=== PATIENT | female | born 1940 | race Caucasian/White ===

== ENCOUNTER 2016-12-14 16:29 | Inpatient (IN) | payer MEDICARE, OTHER ==
[2016-12-14] VITALS (8 sets, daily range): BP systolic 137–183; BP diastolic 68–92; PULSE 63–87; RESP 16–18; TEMP 97.7–98; O2SAT 93–98
[~2016-12-14] VITALS: Ht 154.9 cm; Wt 69.8 kg
[~2016-12-14 16:29] MED LIST: CIPR500T4 PO; ESTR.3 PO; PHEN-426 PO; PROM25SU8 PO
[2016-12-14] MEDS ORDERED: LEVO25TA4 PO (16:42)
--- NOTE | 2016-12-14 16:53 | PD ---
HPI Chief Complaint: Chest Pain Time Seen by Provider: 16:35 Travel History International Travel<30 days: No Contact w/Intl Traveler<30days: No Traveled to known affect area: No History of Present Illness HPI This 76-year-old female is complaining of shortness of breath for the past 3 weeks. She says that she gets symptoms like this every year and she believes is due to allergies. She has no history of asthma. She does not smoke. She has no history of heart disease. Only medication is thyroid replacement she has not had any edema. She does sleep on a low-dose. She is also having intermittent chest pain. She says she is having pressure in the front and back of her chest throughout the day today. She gets this chest pain quite frequently She says that she gets a stress test every year with Dr. Dowling. She says she has no energy and feels tired. She says that she gets symptoms like this every year and in fact this appears not as bad as the years. 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) Social History Alcohol Use: Yes (RARELY) Tobacco Use: No Substance Use: No Allergies-Medications (Allergen,Severity, Reaction): Coded Allergies: No Known Allergies (Unverified , 12/14/16) Reported Meds & Prescriptions Reported Meds & Active Scripts Active Reported Levothyroxine (Levothyroxine Sodium) 25 Mcg Tab 25 Mcg PO DAILY Review of Systems General / Constitutional: No: Fever, Chills Eyes: No: Diploplia, Blurred Vision HENT: No: Headaches, Vertigo, Lightheadedness Cardiovascular: Positive: Chest Pain or Discomfort, Dyspnea on exertion, No: Palpitations, Irregular Rhythm, Tachycardia, Syncope, Edema Respiratory: Positive: Shortness of Breath, No: Wheezing Gastrointestinal: No: Vomiting, Diarrhea Genitourinary: No: Urgency Musculoskeletal: No: Myalgias Skin: No Rash, No Itching Neurologic: Positive: Weakness, No: Focal Abnormalities Hematologic/Lymphatic: No: Easy Bruising Physical Exam Narrative GENERAL: Well-developed female SKIN: Focused skin assessment warm/dry. HEAD: Atraumatic. Normocephalic. EYES: Pupils equal and round. No scleral icterus. No injection or drainage. ENT: No nasal bleeding or discharge. Mucous membranes pink and moist. NECK: Trachea midline. No JVD. CARDIOVASCULAR: Regular rate and rhythm. No murmur appreciated. RESPIRATORY: No accessory muscle use. Clear to auscultation. Breath sounds equal bilaterally. GASTROINTESTINAL: Abdomen soft, non-tender, nondistended. Hepatic and splenic margins not palpable. MUSCULOSKELETAL: No obvious deformities. No clubbing. No cyanosis. No edema. NEUROLOGICAL: Awake and alert. No obvious cranial nerve deficits. Motor grossly within normal limits. Normal speech. PSYCHIATRIC: Appropriate mood and affect; insight and judgment normal. Data Data Last Documented VS Vital Signs Date Time Temp Pulse Resp B/P Pulse Ox O2 Delivery O2 Flow Rate FiO2 12/14/16 17:29 73 16 182/90 96 Room Air 12/14/16 16:31 98.0 Orders Electrocardiogram (12/14/16 16:45) Complete Blood Count With Diff (12/14/16 16:45) Comprehensive Metabolic Panel (12/14/16 16:45) Troponin I (12/14/16 16:45) B-Type Natriuretic Peptide (12/14/16 16:45) Magnesium (Mg) (12/14/16 16:45) Thyroid Stimulating Hormone (12/14/16 16:45) Chest, Pa & Lat (12/14/16 16:45) Aspirin (Aspirin) (12/14/16 17:00) Potassium Chloride (Kcl) (12/14/16 17:30) Nitroglycerin 2% Oint (Nitroglycerin 2% (12/14/16 17:45) Prothrombin Time / Inr (Pt) (12/14/16 17:44) Act Partial Throm Time (Ptt) (12/14/16 17:44) Nitroglycerin Sl (Nitrostat Sl) (12/14/16 17:45) Nitroglycerin-Dextrose Inj (Nitroglyceri (12/14/16 18:15) Ondansetron Inj (Zofran Inj) (12/14/16 18:15) Morphine Inj (Morphine Inj) (12/14/16 18:15) Morphine Inj (Morphine Inj) (12/14/16 18:15) Consent (12/14/16 18:15) Teaching Record: Cardiac Educa JOCELYN.Q12H (12/14/16 18:15) ^ Preps (12/14/16 18:15) ^ Preps (12/14/16 18:15) Bedside Glucose .Prior to procedure (12/14/16 18:15) ^ Insert Iv (12/14/16 18:15) ^ Medication Alert (12/14/16 18:15) Accordion Maker / Telemetry JOCELYN.Q8H (12/14/16 18:15) ^ Obtain As Needed (12/14/16 18:15) ^ Notify Of These Side Effects (12/14/16 18:15) Notify Dr: Blood Pressure (12/14/16 18:15) Notify Dr: Heart Rate (12/14/16 18:15) Teaching Record: Cardiac Educa JOCELYN.Q12H (12/14/16 18:15) ^ Smoking Cessation Counseling (12/14/16 18:15) Accordion Maker / Telemetry JOCELYN.Q8H (12/14/16 18:15) Diet Npo Except Meds (12/15/16 Breakfast) Echo 2d Comp W/Dopp(Routine) (12/14/16 ) Heparin Infusion JOCELYN.Q1H (12/14/16 18:16) Heparin Inj (Heparin Inj) (12/14/16 18:30) Heparin Inj (Heparin Inj) (12/15/16 00:30) Heparin Inj (Heparin Inj) (12/15/16 00:30) Heparin-D5w Inj (Heparin-D5w Inj) (12/14/16 18:30) Act Partial Throm Time (Ptt) (12/14/16 18:16) Cbc No Diff, Includes Plts (12/14/16 18:16) Cbc No Diff, Includes Plts (12/17/16 06:00) Act Partial Throm Time (Ptt) (12/15/16 01:16) Occult Blood (Hemoccult) Stool (12/14/16 18:16) Labs Laboratory Tests Test 12/14/16 12/14/16 17:03 17:54 White Blood Count 6.4 TH/MM3 Red Blood Count 4.49 MIL/MM3 Hemoglobin 13.6 GM/DL Hematocrit 41.1 % Mean Corpuscular Volume 91.6 FL Mean Corpuscular Hemoglobin 30.4 PG Mean Corpuscular Hemoglobin 33.2 % Concent Red Cell Distribution Width 13.3 % Platelet Count 239 TH/MM3 Mean Platelet Volume 8.7 FL Neutrophils (%) (Auto) 51.9 % Lymphocytes (%) (Auto) 37.6 % Monocytes (%) (Auto) 8.0 % Eosinophils (%) (Auto) 1.6 % Basophils (%) (Auto) 0.9 % Neutrophils # (Auto) 3.3 TH/MM3 Lymphocytes # (Auto) 2.4 TH/MM3 Monocytes # (Auto) 0.5 TH/MM3 Eosinophils # (Auto) 0.1 TH/MM3 Basophils # (Auto) 0.1 TH/MM3 CBC Comment DIFF FINAL Differential Comment Sodium Level 146 MEQ/L Potassium Level 3.4 MEQ/L Chloride Level 109 MEQ/L Carbon Dioxide Level 27.0 MEQ/L Anion Gap 10 MEQ/L Blood Urea Nitrogen 17 MG/DL Creatinine 0.84 MG/DL Estimat Glomerular Filtration 66 ML/MIN Rate Random Glucose 107 MG/DL Calcium Level 9.0 MG/DL Magnesium Level 2.4 MG/DL Total Bilirubin 0.3 MG/DL Aspartate Amino Transf 19 U/L (AST/SGOT) Alanine Aminotransferase 25 U/L (ALT/SGPT) Alkaline Phosphatase 58 U/L Troponin I 0.27 NG/ML B-Type Natriuretic Peptide 89 PG/ML Total Protein 7.0 GM/DL Albumin 3.8 GM/DL Thyroid Stimulating Hormone 2.370 uIU/ML 3rd Gen Prothrombin Time 10.0 SEC Prothromb Time International 0.9 RATIO Ratio Activated Partial 24.3 SEC Thromboplast Time MDM Medical Decision Making Medical Screen Exam Complete: Yes Emergency Medical Condition: Yes Medical Record Reviewed: Yes Differential Diagnosis Differential includes CHF, asthma, pneumonia, allergy Narrative Course EKG shows sinus rhythm at a rate of 83. There are horizontal ST depressions in leads V4 through V6. There is also some depression in lead 2 and 1. Her troponin is elevated at 0.27. Patient is complaining of pressure on the upper chest. She was given nitroglycerin and Nitropaste with minimal response. She' ll be given morphine and intravenous nitroglycerin initiated. Case discussed with Dr. bojorquez and we will also initiate a heparin drip and she'll be transferred to [facility] Diagnosis Primary Impression: Acute coronary syndrome Additional Impression: NSTEMI (non-ST elevated myocardial infarction) Admitting Information Admitting Physician Requests: Admit Ernesto Hackett MD Dec 14, 2016 16:53
[2016-12-14] MEDS ORDERED: ASPIRIN 325 MG TAB PO ONE (17:00)
[2016-12-14 17:16] LABS: AUTOMATED NEUTROPHIL # 3.3 TH/MM3 (1.8-7.7); BASOPHIL # 0.1 TH/MM3 (0-0.2); BASOPHIL % 0.9 % (0.0-2.0); CHLORIDE 109 MEQ/L (98-107); EOSINOPHIL # 0.1 TH/MM3 (0-0.4); EOSINOPHIL % 1.6 % (0.0-4.0); HEMATOCRIT 41.1 % (35.0-46.0); HEMO FLAGS DIFF FINAL; LYMPH % 37.6 % (9.0-44.0); LYMPHOCYTE # 2.4 TH/MM3 (1.0-4.8); MEAN CELL VOLUME 91.6 FL (80.0-100.0); MEAN CORPUSCULAR HEMOGLOBIN 30.4 PG (27.0-34.0); MEAN CORPUSCULAR HGB CONC 33.2 % (32.0-36.0); NEUT % 51.9 % (16.0-70.0); PLATELET COUNT 239 TH/MM3 (150-450); POTASSIUM 3.4 MEQ/L (3.5-5.1); RED BLOOD COUNT 4.49 MIL/MM3 (4.00-5.30); RED CELL DISTRIBUTION WIDTH 13.3 % (11.6-17.2); SODIUM (NA) 146 MEQ/L (136-145); WHITE BLOOD COUNT 6.4 TH/MM3 (4.0-11.0)
--- NOTE | 2016-12-14 17:19 | RADHPO ---
EXAM DATE/TIME: 12/14/2016 17:02 [place] COMPARISON: CHEST PA & LAT, November 24, 2014, 21:53. INDICATIONS : Chest pain and shortness of breath. MEDICAL HISTORY : None. SURGICAL HISTORY : None. ENCOUNTER: Initial ACUITY: 3 weeks PAIN SCORE: 6/10 LOCATION: Bilateral chest FINDINGS: PA and lateral views of the chest demonstrate the lungs to be symmetrically aerated without evidence of mass, infiltrate or effusion. The cardiomediastinal contours are unremarkable. Osseous structure s are intact. CONCLUSION: 1. No acute cardiopulmonary findings. Neno Yao MD on December 14, 2016 at 17:17 Board Certified Radiologist. This report was verified electronically.
[2016-12-14 17:20] LABS: ANION GAP 10 MEQ/L (5-15); BLOOD UREA NITROGEN 17 MG/DL (7-18); MAGNESIUM 2.4 MG/DL (1.5-2.5)
[2016-12-14 17:23] LABS: ALT (GPT) 25 U/L (10-53); AST (GOT) 19 U/L (15-37); GLOMERULAR FILTRATION RATE 66 ML/MIN (>89)
[2016-12-14 17:25] LABS: TOTAL BILIRUBIN ADULT 0.3 MG/DL (0.2-1.0)
[2016-12-14 17:26] LABS: ALKALINE PHOSPHATASE 58 U/L (45-117)
[2016-12-14] MEDS ORDERED: POTASSIUM CHLORIDE 20 MEQ CONTROLLED RELEASE TAB PO ONE (17:30)
[2016-12-14] MEDS ORDERED: NITROGLYCERIN 0.4 MG SL 25 TABS/BTL SL ONE (17:45)
[2016-12-14] MEDS ORDERED: NITROGLYCERIN 0.3 MG SL 100 TABS/BTL SL ONE (17:45)
[2016-12-14] MEDS ORDERED: NITROGLYCERIN 2% OINT 1 GM PACKET TOPICAL ONE (17:45)
[2016-12-14 18:12] LABS: APTT (PATIENT) 24.3 SEC (24.3-30.1); INTERNATIONAL NORMALIZED RATIO 0.9 RATIO
[2016-12-14] MEDS ORDERED: NITROGLYCERIN-DEXTROSE INJ 250 ML IV ONE (18:15)
[2016-12-14] MEDS ORDERED: MORPHINE SULFATE 4 MG/ML INJ IV PUSH ONE ×2 (18:15)
[2016-12-14] MEDS ORDERED: ONDANSETRON HCL 4 MG/2 ML VIAL IV PUSH ONE (18:15)
[2016-12-14] MEDS ORDERED: HEPARIN-D5W INJ 250 ML IV SCH (18:30)
[2016-12-14] MEDS ORDERED: HEPARIN SODIUM - IV 10,000 UNITS/10 ML VIAL IV ONE (18:30)
[2016-12-14] MEDS ORDERED: ENALAPRILAT 1.25 MG/ML VIAL IV PUSH PRN (18:45)
[2016-12-14] MEDS ORDERED: SODIUM CHLORIDE 0.9% FLUSH 10 ML FLUSH IV FLUSH PRN (18:45)
[2016-12-14] MEDS ORDERED: BISACODYL 10 MG SUPP RECTAL PRN (18:45)
[2016-12-14] MEDS ORDERED: NALOXONE HCL 0.4 MG/ML AMP IV PRN (18:45)
[2016-12-14] MEDS ORDERED: LORazepam 1 MG TAB PO ONE (18:45)
[2016-12-14] MEDS: SODIUM CHLOR 0.45% 1000 ML INJ 1,000 ML IV SCH (19:49)
[2016-12-14] MEDS: SODIUM CHLORIDE 0.9% FLUSH 10 ML FLUSH IV FLUSH SCH (21:00)
[2016-12-14] MEDS: CARVEDILOL 3.125 MG TAB PO SCH (21:43)
--- NOTE | 2016-12-14 23:25 | HHI.HP ---
[facility] Deidre Escobar MD Admission Diagnosis NSTEMI, ACUTE CORONARY SYNDROME Diagnoses: (1) NSTEMI (non-ST elevated myocardial infarction) Diagnosis: Principal Chief Complaint: chest pain Travel History International Travel<30 Days: No Contact w/Intl Traveler <30 Da: No Traveled to Known Affected Are: No History of Present Illness patient is a 76 y/o female with history of hypothyroidism, otherwise healthy, presented to ER with three-day history of chest pain. she describes it as midsternal chest tightness. she says that initially she thought it was bronchitis and she tried some mucinex but when the pain got worse and she had some numbness of the left hand she got worried and decided to come to ER. she says that she had exertional dyspnea along with the chest pain. she denies any nausea or vomiting. she says that she had this pain before but everytime she related the pain to allergy. but this time the pain was ' constant and more severe'. she was fairly comfortable at the time of my evaluation. Review of Systems Constitutional: DENIES: Fever, Weight loss, Chills, Night Sweats Eyes: DENIES: Blurred vision, Diplopia, Vision loss, Double Vision Ears, nose, mouth, throat: DENIES: Tinnitus, Vertigo, Throat pain, Epistaxis Respiratory: COMPLAINS OF: Shortness of breath, DENIES: Apneas, Cough, Snoring , Wheezing, Hemoptysis, Sputum production Cardiovascular: COMPLAINS OF: Chest pain, Dyspnea on Exertion, DENIES: Palpitations, Syncope, PND, Lower Extremity Edema, Orthopnea, Claudication Gastrointestinal: DENIES: Abdominal pain, Black stools, Bloody stools, Constipation, Diarrhea, Nausea, Vomiting, Difficulty Swallowing, Anorexia Genitourinary: DENIES: Urinary frequency, Urgency, Hematuria, Dysuria Musculoskeletal: DENIES: Joint pain, Muscle aches, Stiffness, Joint Swelling Integumentary: DENIES: Rash Neurologic: DENIES: Abnormal gait, Headache, Localized weakness, Paresthesias, Seizures, Speech Problems, Tremor, Poor Balance Psychiatric: DENIES: Anxiety, Confusion, Mood changes, Depression, Hallucinations, Agitation, Suicidal Ideation, Homicidal Ideation, Delusions Past Family Social History Past Medical History hypothyroidism Past Surgical History eye surgery Reported Medications levothyroxine Allergies: Coded Allergies: No Known Allergies (Unverified , 12/14/16) Active Ordered Medications Current Medications Aspirin (Aspirin) 325 mg ONCE ONCE PO Last administered on 12/14/16 17:24; Start 12/14/16 at 17:00; Stop 12/14/16 at 17:01; Status DC Potassium Chloride (KCl) 20 meq ONCE ONCE PO Last administered on 12/14/16 17: 36; Start 12/14/16 at 17:30; Stop 12/14/16 at 17:31; Status DC Nitroglycerin (Nitrostat Sl) 0.3 mg ONCE ONCE SL ; Start 12/14/16 at 17:45; Stop 12/14/16 at 17:46; Status Cancel Nitroglycerin (Nitroglycerin 2% Oint) 0.5 inch ONCE ONCE TOPICAL Last administered on 12/14/16 17:50; Start 12/14/16 at 17:45; Stop 12/14/16 at 17:46; Status DC Nitroglycerin 0.4 mg 0.4 mg ONCE ONCE SL Last administered on 12/14/16 17:55; Start 12/14/16 at 17:45; Stop 12/14/16 at 17:47; Status DC Nitroglycerin/ Dextrose (Nitroglycerin-Dextrose Inj) 250 ml @ 0 mls/hr TITRATE ONCE IV Last administered on 12/14/16 18:15; Start 12/14/16 at 18:15; Stop at 18:16; Status DC Ondansetron HCl (Zofran Inj) 4 mg ONCE ONCE IV PUSH Last administered on 18:34; Start 12/14/16 at 18:15; Stop 12/14/16 at 18:16; Status DC Morphine Sulfate (Morphine Inj) 2 mg ONCE ONCE IV PUSH ; Start 12/14/16 at 18:15 ; Stop 12/14/16 at 18:16; Status DC Morphine Sulfate (Morphine Inj) 4 mg ONCE ONCE IV PUSH Last administered on 18:35; Start 12/14/16 at 18:15; Stop 12/14/16 at 18:16; Status DC Heparin Sodium (Porcine) (Heparin Inj) 5,000 units ONCE ONCE IV Last administered on 12/14/16 19:45; Start 12/14/16 at 18:30; Stop 12/14/16 at 18:31; Status DC Heparin Sodium (Porcine) (Heparin Inj) 5,000 units UNSCH PRN IV APTT LESS THAN 25; Start 12/15/16 at 00:30 Heparin Sodium (Porcine) 2500 units 2,500 units UNSCH PRN IV APTT 25 TO 39; Start 12/15/16 at 00:30 Heparin Sodium/ Dextrose (Heparin-D5W Inj) 250 ml @ 0 mls/hr TITRATE IV Last administered on 12/14/16 20:40; Start 12/14/16 at 18:30 Lorazepam 1 mg 1 mg ONCE ONCE PO Last administered on 12/14/16 19:42; Start at 18:45; Stop 12/14/16 at 18:46; Status DC Sodium Chloride (1/2 NS 1000 ml Inj) 1,000 ml @ 75 mls/hr [id number] IV Last administered on 12/14/16 19:49; Start 12/14/16 at 18:37 Sodium Chloride (NS Flush) 2 ml UNSCH PRN IV FLUSH FLUSH AFTER USING IV ACCESS ; Start 12/14/16 at 18:45 Sodium Chloride (NS Flush) 2 ml BID IV FLUSH Last administered on 12/14/16 21: 00; Start 12/14/16 at 21:00 Ondansetron HCl (Zofran Inj) 4 mg Q6H PRN IVP NAUSEA OR VOMITING; Start at 18:45 Bisacodyl (Dulcolax Supp) 10 mg DAILY PRN RECTAL CONSTIPATION; Start 12/14/16 at 18:45 Naloxone HCl (Narcan Inj) 0.4 mg UNSCH PRN IV SEE LABEL COMMENTS; Start at 18:45 Carvedilol (Coreg) 3.125 mg Q12HR PO Last administered on 12/14/16 21:43; Start 12/14/16 at 21:00 Enalaprilat (Vasotec Inj) 1.25 mg Q6H PRN IV PUSH SBP> OR = 180, DBP> OR = 100 ; Start 12/14/16 at 18:45 Aspirin (Ecotrin Ec) 81 mg DAILY PO ; Start 12/15/16 at 09:00 Family History no heart disease in the family. Social History no smoking or drinking. Physical Exam Vital Signs Vital Signs Date Time Temp Pulse Resp B/P Pulse Ox O2 Delivery O2 Flow Rate FiO2 12/14/16 21:56 71 16 94 Room Air 12/14/16 21:46 70 16 140/76 96 Room Air 12/14/16 21:17 72 16 141/68 93 Room Air 12/14/16 21:02 73 16 137/74 96 Room Air 12/14/16 20:09 64 16 159/78 95 Room Air 12/14/16 19:06 72 16 98 Room Air 12/14/16 19:06 75 16 183/92 98 Room Air 12/14/16 19:05 18 12/14/16 17:29 73 16 182/90 96 Room Air 12/14/16 17:29 Room Air 12/14/16 16:35 98 20 98 Room Air 12/14/16 16:31 98.0 87 16 166/88 98 Physical Exam GENERAL: This is a well-nourished, well-developed patient, in no apparent distress. SKIN: No rashes, ecchymoses or lesions. Cool and dry. HEAD: Atraumatic. Normocephalic. No temporal or scalp tenderness. EYES: Pupils equal round and reactive. Extraocular motions intact. No scleral icterus. No injection or drainage. ENT: Nose without bleeding, purulent drainage or septal hematoma. Throat without erythema, tonsillar hypertrophy or exudate. Uvula midline. Airway patent. NECK: Trachea midline. No JVD or lymphadenopathy. Supple, nontender, no meningeal signs. CARDIOVASCULAR: Regular rate and rhythm without murmurs, gallops, or rubs. RESPIRATORY: Clear to auscultation. Breath sounds equal bilaterally. No wheezes , rales, or rhonchi. GASTROINTESTINAL: Abdomen soft, non-tender, nondistended. No hepato-splenomegaly , or palpable masses. No guarding. MUSCULOSKELETAL: Extremities without clubbing, cyanosis, or edema. No joint tenderness, effusion, or edema noted. No calf tenderness. Negative Homans sign bilaterally. NEUROLOGICAL: Awake and alert. Cranial nerves II through XII intact. Motor and sensory grossly within normal limits. Five out of 5 muscle strength in all muscle groups. Normal speech. Laboratory Laboratory Tests Test 12/14/16 12/14/16 17:03 17:54 White Blood Count 6.4 Red Blood Count 4.49 Hemoglobin 13.6 Hematocrit 41.1 Mean Corpuscular Volume 91.6 Mean Corpuscular Hemoglobin 30.4 Mean Corpuscular Hemoglobin 33.2 Concent Red Cell Distribution Width 13.3 Platelet Count 239 Mean Platelet Volume 8.7 Neutrophils (%) (Auto) 51.9 Lymphocytes (%) (Auto) 37.6 Monocytes (%) (Auto) 8.0 Eosinophils (%) (Auto) 1.6 Basophils (%) (Auto) 0.9 Neutrophils # (Auto) 3.3 Lymphocytes # (Auto) 2.4 Monocytes # (Auto) 0.5 Eosinophils # (Auto) 0.1 Basophils # (Auto) 0.1 CBC Comment DIFF FINAL Differential Comment Sodium Level 146 Potassium Level 3.4 Chloride Level 109 Carbon Dioxide Level 27.0 Anion Gap 10 Blood Urea Nitrogen 17 Creatinine 0.84 Estimat Glomerular Filtration 66 Rate Random Glucose 107 Calcium Level 9.0 Magnesium Level 2.4 Total Bilirubin 0.3 Aspartate Amino Transf 19 (AST/SGOT) Alanine Aminotransferase 25 (ALT/SGPT) Alkaline Phosphatase 58 Troponin I 0.27 B-Type Natriuretic Peptide 89 Total Protein 7.0 Albumin 3.8 Thyroid Stimulating Hormone 2.370 3rd Gen Prothrombin Time 10.0 Prothromb Time International 0.9 Ratio Activated Partial 24.3 Thromboplast Time Result Diagram: 12/14/16 1703 12/14/16 1703 Imaging Last Impressions Chest X-Ray 12/14/16 1645 Signed Impressions: Service Date/Time: December 17:02 - CONCLUSION: 1. No acute cardiopulmonary findings. Neno Yao MD EKG; sinus rhythm with ST depression in infero-lateral leads Assessment and Plan Assessment and Plan A/P - NSTEMI; started on aspirin, coreg, heparin and nitro drip- cardiology consulted- will check the echo and lipid panel. -hypokalemia; replaced. -hypothyroidism; resume home meds -DVT prophylaxis; on heparin drip Discussed Condition With the patient and . Physician Certification 2 Midnight Certification Type: Admission for Inpatient Services Order for Inpatient Services The services are ordered in accordance with Medicare regulations or non- Medicare payer requirements, as applicable. In the case of services not specified as inpatient-only, they are appropriately provided as inpatient services in accordance with the 2-midnight benchmark. Estimated LOS (days): 2 days is the estimated time the patient will need to remain in the hospital, assuming treatment plan goals are met and no additional complications. Post-Hospital Plan: Home Jose Gan MD Dec 14, 2016 23:25
[2016-12-15] VITALS (31 sets, daily range): BP systolic 113–159; BP diastolic 48–92; PULSE 59–90; RESP 16–18; TEMP 97.6–98.6; O2SAT 96–99
[2016-12-15] MEDS ORDERED: HEPARIN SODIUM - IV 10,000 UNITS/10 ML VIAL IV PRN ×2 (00:30)
[2016-12-15 03:45] LABS: APTT (PATIENT) 44.8 SEC (24.3-30.1)
[2016-12-15 05:19] LABS: AUTOMATED NEUTROPHIL # 3.8 TH/MM3 (1.8-7.7); BASOPHIL % 0.6 % (0.0-2.0); EOSINOPHIL # 0.1 TH/MM3 (0-0.4); EOSINOPHIL % 1.5 % (0.0-4.0); HEMATOCRIT 37.3 % (35.0-46.0); HEMO FLAGS DIFF FINAL; LYMPH % 37.6 % (9.0-44.0); LYMPHOCYTE # 2.8 TH/MM3 (1.0-4.8); MEAN CELL VOLUME 91.6 FL (80.0-100.0); MEAN CORPUSCULAR HEMOGLOBIN 30.4 PG (27.0-34.0); MEAN CORPUSCULAR HGB CONC 33.2 % (32.0-36.0); MONO % 8.5 % (0.0-8.0); NEUT % 51.8 % (16.0-70.0); PLATELET COUNT 191 TH/MM3 (150-450); RED BLOOD COUNT 4.07 MIL/MM3 (4.00-5.30); RED CELL DISTRIBUTION WIDTH 13.3 % (11.6-17.2); WHITE BLOOD COUNT 7.4 TH/MM3 (4.0-11.0)
[2016-12-15 05:47] LABS: ALT (GPT) 22 U/L (10-53); ANION GAP 9 MEQ/L (5-15); AST (GOT) 15 U/L (15-37); BICARBONATE 25.3 MEQ/L (21.0-32.0); BLOOD UREA NITROGEN 18 MG/DL (7-18); CHLORIDE 105 MEQ/L (98-107); GLOMERULAR FILTRATION RATE 89 ML/MIN (>89); POTASSIUM 3.7 MEQ/L (3.5-5.1); SODIUM (NA) 139 MEQ/L (136-145)
[2016-12-15 05:51] LABS: ALKALINE PHOSPHATASE 40 U/L (45-117); HDL CHOLESTEROL 66.9 MG/DL (40.0-60.0); LDL CHOLESTEROL 123 MG/DL (0-99); TOTAL BILIRUBIN ADULT 0.4 MG/DL (0.2-1.0)
[2016-12-15 05:59] LABS: CREATINE KINASE 71 U/L (26-192)
--- NOTE | 2016-12-15 07:32 | HHI.PR ---
Subjective Remarks In the bed. Says she did not have much chest pain overnight. However she has chest pressure. Since medications aren't helping. Less shortness of breath. No nausea, vomiting, diaphoresis overnight. Plan for cardiac catheter by Dr. Jefferson Objective Vitals Vital Signs Date Time Temp Pulse Resp B/P Pulse Ox O2 Delivery O2 Flow Rate FiO2 12/15/16 06:00 73 12/15/16 05:00 70 12/15/16 04:00 65 12/15/16 03:00 69 12/15/16 03:00 98.0 78 16 156/90 96 12/15/16 02:00 66 12/15/16 01:00 64 12/15/16 00:00 68 12/14/16 23:00 97.7 65 18 137/79 98 12/14/16 23:00 63 12/14/16 21:56 71 16 94 Room Air 12/14/16 21:46 70 16 140/76 96 Room Air 12/14/16 21:17 72 16 141/68 93 Room Air 12/14/16 21:02 73 16 137/74 96 Room Air 12/14/16 20:09 64 16 159/78 95 Room Air 12/14/16 19:06 72 16 98 Room Air 12/14/16 19:06 75 16 183/92 98 Room Air 12/14/16 19:05 18 12/14/16 17:29 73 16 182/90 96 Room Air 12/14/16 17:29 Room Air 12/14/16 16:35 98 20 98 Room Air 12/14/16 16:31 98.0 87 16 166/88 98 I/O 12/14/16 12/14/16 12/14/16 12/15/16 12/15/16 12/15/16 07:00 15:00 23:00 07:00 15:00 23:00 Intake Total 513 ml Balance 513 ml Intake Oral 0 ml IV Total 513 ml # Voids 2 # Bowel Movements 0 Result Diagram: 12/15/16 0500 12/15/16 0500 Imaging Last Impressions Chest X-Ray 12/14/16 1645 Signed Impressions: Service Date/Time: December 17:02 - CONCLUSION: 1. No acute cardiopulmonary findings. Neno Yao MD Objective Remarks GENERAL: This is a well-nourished, well-developed patient, in no apparent distress. SKIN: No rashes, ecchymoses or lesions. Cool and dry. HEAD: Atraumatic. Normocephalic. No temporal or scalp tenderness. EYES: Pupils equal round and reactive. Extraocular motions intact. No scleral icterus. No injection or drainage. ENT: Nose without bleeding, purulent drainage or septal hematoma. Throat without erythema, tonsillar hypertrophy or exudate. Uvula midline. Airway patent. NECK: Trachea midline. No JVD or lymphadenopathy. Supple, nontender, no meningeal signs. CARDIOVASCULAR: Regular rate and rhythm without murmurs, gallops, or rubs. RESPIRATORY: Clear to auscultation. Breath sounds equal bilaterally. No wheezes , rales, or rhonchi. GASTROINTESTINAL: Abdomen soft, non-tender, nondistended. No hepato-splenomegaly , or palpable masses. No guarding. MUSCULOSKELETAL: Extremities without clubbing, cyanosis, or edema. No joint tenderness, effusion, or edema noted. No calf tenderness. Negative Homans sign bilaterally. NEUROLOGICAL: Awake and alert. Cranial nerves II through XII intact. Motor and sensory grossly within normal limits. Five out of 5 muscle strength in all muscle groups. Normal speech. A/P Problem List: (1) NSTEMI (non-ST elevated myocardial infarction) ICD Code: I21.4 Status: Acute Assessment and Plan 76 yo F with: NSTEMI: Trops 0.27-->0.32--> 0.28 started on aspirin, coreg, heparin and nitro drip. cardiology consulted, appreciate recommendations 2D ECHO pending Lipid panel reviewed patient with HLD, start statin Plan for cardiac cath by Dr Jefferson Hypokalemia: Replaced. Monitor and replace as need. Hypothyroidism: resume home meds DVT prophylaxis- on heparin drip Discussed Condition With patient, nurse, Dr Jefferson cardiology, family at bedside Iman Caballero MD Dec 15, 2016 07:31
[2016-12-15] MEDS ORDERED: HEPARIN-NS/PF INJ 500 ML ONE (08:37)
[2016-12-15] MEDS ORDERED: HEPARIN SODIUM - IV 10,000 UNITS/10 ML VIAL ONE (08:42)
[2016-12-15] MEDS ORDERED: MIDAZOLAM HCL 2 MG/2 ML VIAL ONE ×3 (08:42→09:50)
[2016-12-15] MEDS ORDERED: NITROGLYCERIN INJ 5 ML ONE (08:42)
[2016-12-15] MEDS ORDERED: STERILE WATER FOR INJECTION 10 ML VIAL ONE (09:13)
[2016-12-15] MEDS ORDERED: BIVALIRUDIN 250 MG VIAL ONE (09:13)
[2016-12-15] MEDS ORDERED: CLOPIDOGREL 300 MG TAB ONE (09:58)
[2016-12-15] MEDS ORDERED: BIVALIRUDIN INJ 250 MG in SODIUM CHLORIDE 0.9% INJ 50 ML IV SCH (10:01)
[2016-12-15] MEDS ORDERED: MISC INFORMATION XX ONE (10:15)
[2016-12-15] MEDS ORDERED: MORPHINE SULFATE 4 MG/ML INJ IV PUSH PRN (10:15)
[2016-12-15] MEDS ORDERED: oxyCODONE/ACETAMINOPHEN 10 MG/325 MG TAB PO PRN (10:15)
[2016-12-15] MEDS ORDERED: oxyCODONE/ACETAMINOPHEN 5 MG/325 MG TAB PO PRN (10:15)
[2016-12-15] MEDS ORDERED: LIDOCAINE 2% JELLY 30 ML TUBE TOP PRN (10:15)
[2016-12-15] MEDS ORDERED: BACITRACIN OINT 0.9 GM PKT TOP ONE (10:15)
[2016-12-15] MEDS ORDERED: CLOPIDOGREL 300 MG TAB PO ONE (10:15)
[2016-12-15] MEDS ORDERED: ACETAMINOPHEN 325 MG TAB PO PRN (10:15)
[2016-12-15] MEDS ORDERED: NITROGLYCERIN 0.4 MG SL 25 TABS/BTL SL ONE (10:22)
[2016-12-15] MEDS: ONDANSETRON HCL 4 MG/2 ML VIAL IVP PRN ×2 (10:22→16:13)
[2016-12-15] MEDS: LEVOTHYROXINE SODIUM 25 MCG TAB PO SCH (10:36)
[2016-12-15] MEDS: ASPIRIN EC 81 MG TABEC PO SCH (10:37)
[2016-12-15] MEDS: CARVEDILOL 3.125 MG TAB PO SCH ×2 (10:37→21:49)
[2016-12-15] MEDS: SODIUM CHLORIDE 0.9% FLUSH 10 ML FLUSH IV FLUSH SCH ×2 (10:45→21:49)
[2016-12-15] MEDS ORDERED: CARV3.125 PO (12:46)
[2016-12-15] MEDS ORDERED: ATOR40TA16 PO (12:46)
[2016-12-15] MEDS ORDERED: ASPI81TA11 PO (12:46)
[2016-12-15] MEDS ORDERED: NITR1SUB3 SL (12:46)
[2016-12-15] MEDS ORDERED: PLAV75TA29 PO (12:46)
[2016-12-15] MEDS: ATORVASTATIN 40 MG TAB PO SCH (12:49)
--- NOTE | 2016-12-15 13:07 | MB ---
cc: CRYSTAL SINGH DATE OF CONSULTATION 12/15/2016 REASON FOR CONSULTATION [id number] CO. HISTORY OF PRESENT ILLNESS This is a very nice 76-year-old female. She has a history of hypothyroidism and general allergies. She states that she has had a 3-week history of some intermittent chest pain primarily exertional. She usually goes on a four walk now more recently she has developed substernal chest pain with this associated with shortness of breath. She initially attributed these to her allergies, but when she developed left arm pain associated with her substernal tightness yesterday, she decided to come into the emergency department. When she arrived at [facility] emergency department, she had ST depression inferolaterally associated with a mild elevation in her troponin. She was now transferred over to [facility] for consideration of cardiac catheterization. She was started on a heparin and nitroglycerin drip. She still has some mild chest pain, although it is significantly improved compared to her first arrival. She has no prior history of known heart disease. PAST MEDICAL HISTORY Hypothyroidism ALLERGIES NO KNOWN DRUG ALLERGIES. MEDICATIONS Levothyroxine REVIEW OF SYSTEMS A 12-point review of systems was performed and is negative otherwise as noted in the history of present illness. PHYSICAL EXAMINATION VITAL SIGNS: Temperature 98, pulse 76, blood pressure 144/84 mmHg. GENERAL: Alert and oriented x3 in no acute distress. HEENT: Exam shows pupils reactive to light and accommodation. Extraocular movements are intact. No elevation of jugular venous distension. No thyromegaly or lymphadenopathy. No carotid bruits. LUNGS: Clear to auscultation bilaterally. ABDOMEN: Exam is nontender and nondistended. Good bowel sounds. No hepatosplenomegaly. EXTREMITIES: Show no clubbing, cyanosis or edema. Good peripheral pulses. Cranial nerves intact. Motor and sensory grossly intact. LABORATORY DATA WBC 7.4, hemoglobin 12.4, platelet count 191, INR 0.9. Sodium 139, potassium 3.7, BUN 18, creatinine 0.65. Troponin peaked at 0.32. Electrocardiogram shows sinus rhythm, [address] depression in V4-V6 in addition to 2, 3 aVF which partially normalized on repeat EKG. ASSESSMENT 1. [id number] CO 2. Hypothyroidism PLAN The patient's symptoms are rather suggestive for acute coronary syndrome confirmed by objective evidence of elevated troponin and EKG changes. She is still having some mild chest discomfort on a nitroglycerin drip and heparin. We have discussed the risks, benefits and alternatives of cardiac catheterization. She is agreeable to proceed. She will be brought back to the catheterization now for coronary angiography. We will continue with aggressive medical therapy. MD TWYLA Lynn/ISAIAS /8:38 AM /12:58 PM
--- NOTE | 2016-12-15 14:36 | EC ---
Study Study Date:12/15/2016 STUDY CONCLUSIONS SUMMARY - Left ventricle: The cavity size was normal. Wall thickness was normal. Systolic function was normal. The estimated ejection fraction was in the range of 50% to 55%. Wall motion was normal; there were no regional wall motion abnormalities. - Mitral valve: Mild to moderate regurgitation. If LV function is below 40, please consider prescribing an ACEI or ARB or document rationale for non-use. PROCEDURE DATA STUDY STATUS: Elective. Procedure: Transthoracic echocardiography. Image quality was good. Scanning was performed from the parasternal, apical, and subcostal acoustic windows. Study completion: The patient tolerated the procedure well. Transthoracic echocardiography. M-mode, complete 2D, complete spectral Doppler, and color Doppler. Patient status: Inpatient. CARDIAC ANATOMY LEFT VENTRICLE: The cavity size was normal. Wall thickness was normal. Systolic function was normal. The estimated ejection fraction was in the range of 50% to 55%. Wall motion was normal; there were no regional wall motion abnormalities. AORTIC VALVE: Trileaflet; normal thickness leaflets. Doppler: Transvalvular velocity was within the normal range. There was no stenosis. No regurgitation. AORTA: Aortic root: The aortic root was normal in size. MITRAL VALVE: Structurally normal valve. Doppler: Transvalvular velocity was within the normal range. There was no evidence for stenosis. Mild to moderate regurgitation. LEFT ATRIUM: The atrium was normal in size. RIGHT VENTRICLE: The cavity size was normal. Wall thickness was normal. PULMONIC VALVE: Doppler: Transvalvular velocity was within the normal range. There was no evidence for stenosis. No regurgitation. TRICUSPID VALVE: Structurally normal valve. Doppler: Transvalvular velocity was within the normal range. No regurgitation. PULMONARY ARTERY: The main pulmonary artery was normal-sized. Systolic pressure was within the normal range. RIGHT ATRIUM: The atrium was normal in size. PERICARDIUM: There was no pericardial effusion. SYSTEMIC VEINS: Inferior vena cava: The vessel was normal in size. BASIC MEASUREMENTS ADULT Normal Left ventricle LV internal dimension, ED, chordal level, *40.2 mm 43-52 PLAX LV internal dimension, ES, chordal level, 31 mm 23-38 PLAX Fractional shortening, chordal level, PLAX *23 % >29 LV posterior wall thickness, ED 6.15 mm IVS/LVPW ratio, ED *1.35 <1.3 Ventricular septum Septal thickness, ED 8.32 mm Aortic valve Leaflet separation 15 mm 15-26 Left atrium Anterior-posterior dimension 33 mm Right ventricle RV internal dimension, ED, PLAX 19 mm 19-38 BASIC MEASUREMENTS ADULT Normal Aortic valve Leaflet separation 15 mm 15-26 Aorta Root diameter, ED 25 mm 20-37 DOPPLER MEASUREMENTS ADULT Normal Aortic valve Peak velocity, S 154 cm/s Mitral valve Peak E-wave velocity 54.8 cm/s Peak A-wave velocity 69.6 cm/s Peak E/A ratio 0.8 Tricuspid valve Regurgitant peak velocity 228 cm/s Peak RV-RA gradient, S 21 mm Hg Maximal regurgitant velocity 228 cm/s LEGEND: Mean values are shown as u=mean value. Asterisk (*) santiago values outside specified normal range. Prepared and signed by Jorge Maldonado [id number]
[2016-12-15] MEDS ORDERED: IOHEXOL 350 MG/ML 50 ML BTL (for Cath Lab) OTHER ONE (15:15)
[2016-12-15] MEDS ORDERED: IOHEXOL 350 MG/ML 100 ML BTL (for Cath Lab) OTHER ONE (15:15)
--- NOTE | 2016-12-15 15:39 | MA ---
cc: CRYSTAL SINGH DATE: 12/15/2016 INDICATION [id number] [place]. PROCEDURE PERFORMED 1. Fluoroscopy interpretation. 2. Left heart catheterization 3. Left ventriculography. 4. Coronary angiography. 5. Orbital rotational atherectomy of the left anterior descending coronary artery. 6. Percutaneous transluminal angioplasty endovascular stenting with drug-eluting stent to the first obtuse marginal branch. 7. Endovascular stenting with drug-eluting stent to the mid left anterior descending coronary artery left anterior descending coronary artery. His method; risks and alternatives us with the patient. The patient understood and consented to procedure. PROCEDURE The patient brought catheterization lab and the catheterization table. Right wrist was prepped and draped in sterile fashion. Right wrist was anesthetized 2% lidocaine. Right radial artery was cannulated 6-Taiwanese 7 cm sheath was placed out difficulty. 3000 units of intravenous heparin and 200 mcg of intravenous nitroglycerin was administered. LEFT HEART CATHETERIZATION 6-Taiwanese JR-5 catheter advanced across the aortic valve without difficulty. Intraventricular hemodynamics measured at 159 over 10 mmHg. Left ventriculography; the left ventriculography cycle left ventriculography was performed in right anterior oblique view using a 6-Taiwanese JR-5 catheter and a 12 cc contrast injection with good opacification. Left ventricular ejection fraction visually estimated 65% without regional wall motion abnormalities. CORONARY ANGIOGRAPHY: 1. Left main coronary artery is long, has some mild luminal irregularities, it has some mild luminal irregularities otherwise angiographically normal. 2. Left anterior descending coronary has a 95% calcified stenosis in the mid left anterior descending coronary artery segment. There are two smaller diagonal branches which bifurcate, both mid left anterior descending coronary artery and distal to the stenosis. The remainder of the vessels smaller caliber size angiographically normal. 3. Left circumflex large caliber size vessel gives rise to a larger first obtuse marginal branch which has two sub-branches. There is a 99% stenosis in the mid segment of the obtuse marginal branch. 4. The right coronary is dominant vessel giving rise to a posterior descending branch. There is a 40% proximal stenosis. PERCUTANEOUS INTERVENTION: Left coronary circulation was selectively engaged with a 6-Taiwanese AL 0.75 guide catheter 0.014-180 cm run-through wire was navigated down to the distal first obtuse marginal branch. 2.0 x 12 mm A4 balloon was then deployed in the mid to the obtuse marginal branch. Repeat angiography still shows severe residual stenosis. 2.25 x 12 Synergy drug-eluting stent was then deployed in the mid first obtuse marginal branch. Repeat angiography showed no significant residual stenosis. Attention was directed towards the left anterior descending coronary artery. A 300 cm 0.014 inches run-through wire was navigated down to the left distal left anterior descending coronary artery without difficulty. All 1.25 x 6 mm over the wire balloon was then advanced down over the wire and the wire was removed. A 0.014 inches 325 centimeter viper wire was then navigated down the distal left anterior descending coronary without difficulty over the wire balloon removed. A 1.25 mm CSI atherectomy catheter was then prepped and advanced over the wire orbital rotational atherectomy was performed and two sequential passes of 60,000 revolutions per minute in the mid left anterior descending coronary artery. 2.5 x 15 mm Euphora balloon was then deployed in the mid left anterior descending coronary artery. Repeat angiography still shows severe residual stenosis. A 2.75 x 20 mm RX Synergy drug-eluting stent was advanced down to mid left anterior descending coronary deployed. Repeat angiography showed no residual stenosis, JODI III flow. Guide catheter was removed. Hemo band applied. CONCLUSION 1. Severe two-vessel coronary disease involving subtotally occluded obtuse marginal branch and severely stenotic mid left anterior descending coronary artery. 2. Normal left-sided filling pressure. Left ventricular systolic function. 3. Successful percutaneous endovascular stenting with drug-eluting stent to the first obtuse marginal branch. 4. Successful orbital rotational atherectomy and endovascular stenting with drug-eluting stent to the mid left anterior descending coronary artery. PLAN The patient monitored closely for any post procedural complications. Hopefully this will translate well with symptomatic improvement. Anticipate discharge tomorrow. MD TWYLA Lynn/fred /10:09 AM /3:22 PM
[2016-12-15 16:02] LABS: HEMOGLOBIN A1a 1.1 %; HEMOGLOBIN A1b 0.9 %; HEMOGLOBIN Ao 85.2 %; HEMOGLOBIN F 1.1 %; HEMOGLOBIN LA1C 1.9 %; HEMOGLOBIN P3 3.9 %
[2016-12-15] MEDS: SODIUM CHLOR 0.45% 1000 ML INJ 1,000 ML IV SCH (21:17)
--- NOTE | 2016-12-15 21:38 | EKG ---
Date Performed: 12/14/2016 Time Performed: 16:35:08 PTAGE: 76 years EKG: Sinus rhythm . Leftward axis Inferior/lateral ST-T changes suggest myocardial injury/ischemia Since previous codie ng, no significant change noted Abnormal ECG PREVIOUS TRACING : 09/16/2008 12.17 DOCTOR: Marquez Ayoub Interpretating Date/Time 12/15/2016 21:38:06
--- NOTE | 2016-12-15 21:41 | EKG ---
Date Performed: 12/15/2016 Time Performed: 01:44:52 PTAGE: 76 years EKG: Sinus rhythm . Poor R wave progression - probable normal variant Extensive ST-T changes are nonspecific Anterolate ral ischemia noted. Borderline ECG PREVIOUS TRACING : 12/14/2016 18.49 DOCTOR: Marquez Ayoub Interpretating Date/Time 12/15/2016 21:39:01
--- NOTE | 2016-12-15 21:41 | EKG ---
Date Performed: 12/14/2016 Time Performed: 18:49:08 PTAGE: 76 years EKG: Sinus rhythm . Poor R wave progression - probable normal variant Inferior/lateral ST-T changes are nonspecific Low QRS voltages in precordial leads Anterolateral ischemia noted. Borderline ECG PREVIOUS TRACING : 12/14/2016 16.35 DOCTOR: Marquez Ayoub Interpretating Date/Time 12/15/2016 21:38:43
--- NOTE | 2016-12-15 21:41 | EKG ---
Date Performed: 12/15/2016 Time Performed: 06:45:56 PTAGE: 76 years EKG: Sinus rhythm . Inferior/lateral ST-T changes are nonspecific Anterolateral ischemia noted. Borderline ECG PREVIOUS TRACING : 12/15/2016 01.44 DOCTOR: Mraquez Ayoub Interpretating Date/Time 12/15/2016 21:39:20
[2016-12-16] VITALS (9 sets, daily range): BP systolic 126–143; BP diastolic 73–78; PULSE 80–99; RESP 16–18; TEMP 97.8; O2SAT 96–97
[2016-12-16 06:10] LABS: AUTOMATED NEUTROPHIL # 7.5 TH/MM3 (1.8-7.7); BASOPHIL % 0.2 % (0.0-2.0); EOSINOPHIL # 0.1 TH/MM3 (0-0.4); HEMATOCRIT 37.2 % (35.0-46.0); HEMO FLAGS DIFF FINAL; LYMPH % 18.5 % (9.0-44.0); LYMPHOCYTE # 1.9 TH/MM3 (1.0-4.8); MEAN CELL VOLUME 91.4 FL (80.0-100.0); MEAN CORPUSCULAR HEMOGLOBIN 31.6 PG (27.0-34.0); MEAN CORPUSCULAR HGB CONC 34.6 % (32.0-36.0); MONO % 8.8 % (0.0-8.0); NEUT % 71.5 % (16.0-70.0); PLATELET COUNT 188 TH/MM3 (150-450); RED BLOOD COUNT 4.07 MIL/MM3 (4.00-5.30); RED CELL DISTRIBUTION WIDTH 13.4 % (11.6-17.2); WHITE BLOOD COUNT 10.5 TH/MM3 (4.0-11.0)
[2016-12-16] MEDS: LEVOTHYROXINE SODIUM 25 MCG TAB PO SCH (06:19)
[2016-12-16 06:28] LABS: BICARBONATE 26.1 MEQ/L (21.0-32.0); POTASSIUM 3.4 MEQ/L (3.5-5.1)
[2016-12-16 06:30] LABS: HDL CHOLESTEROL 69.6 MG/DL (40.0-60.0)
[2016-12-16] MEDS ORDERED: ISOSORBIDE MONONITRATE 30 MG TAB PO SCH (07:00)
--- NOTE | 2016-12-16 07:45 | PD.CARD.PN ---
Subjective Subjective Remarks no complaints no overnight events Objective Medications Current Medications Medications (Trade) Dose Ordered Sig/Óscar Route Start Time Stop Time Status Last Admin (09/11 NS 1000 ml Inj) 1,000 ml @ 75 mls/hr [id number] IV 12/14/16 18:37 12/14/16 19:49 (NS Flush) 2 ml UNSCH PRN IV FLUSH 12/14/16 18:45 (NS Flush) 2 ml BID IV FLUSH 12/14/16 21:00 12/15/16 21:49 (Zofran Inj) 4 mg Q6H PRN IVP 12/14/16 18:45 12/15/16 16:13 (Dulcolax Supp) 10 mg DAILY PRN RECTAL 12/14/16 18:45 (Narcan Inj) 0.4 mg UNSCH PRN IV 12/14/16 18:45 (Coreg) 3.125 mg Q12HR PO 12/14/16 21:00 12/15/16 21:49 (Vasotec Inj) 1.25 mg Q6H PRN IV PUSH 12/14/16 18:45 (Ecotrin Ec) 81 mg DAILY PO 12/15/16 09:00 12/15/16 10:37 (Synthroid) 25 mcg DAILY@06 PO 12/15/16 06:00 12/16/16 06:19 (Tylenol) 325 mg Q4H PRN PO 12/15/16 10:15 12/16/16 05:08 (Percocet 5-325 Mg) 1 tab Q4H PRN PO 12/15/16 10:15 (Percocet 10-325 Mg) 1 tab Q4H PRN PO 12/15/16 10:15 12/15/16 10:37 (Morphine Inj) 2 mg Q30M PRN IV PUSH 12/15/16 10:15 12/15/16 10:33 (Plavix) 75 mg DAILY PO 12/16/16 09:00 (Lipitor) 40 mg DAILY PO 12/15/16 11:00 12/15/16 12:49 (Imdur) 30 mg DAILY@07 PO 12/16/16 07:00 12/16/16 06:19 Vital Signs / I&O Vital Signs Date Time Temp Pulse Resp B/P Pulse Ox O2 Delivery O2 Flow Rate FiO2 12/16/16 06:00 80 12/16/16 05:12 99 18 143/73 96 12/16/16 05:00 82 12/16/16 04:00 84 12/16/16 03:00 85 12/16/16 02:00 84 12/16/16 01:00 80 12/16/16 00:00 80 12/15/16 23:38 82 16 121/62 97 12/15/16 23:00 79 12/15/16 22:00 82 12/15/16 21:00 76 12/15/16 20:00 84 12/15/16 19:20 98.6 82 16 136/48 99 12/15/16 19:00 72 12/15/16 18:00 70 12/15/16 17:00 78 142/85 12/15/16 17:00 76 12/15/16 16:00 77 12/15/16 16:00 73 125/69 12/15/16 15:00 90 119/66 12/15/16 15:00 74 12/15/16 15:00 97.6 80 18 119/66 97 12/15/16 14:00 76 12/15/16 14:00 77 125/76 12/15/16 13:00 59 12/15/16 13:00 74 158/87 12/15/16 12:30 81 159/82 12/15/16 12:00 80 12/15/16 12:00 71 145/78 12/15/16 11:30 69 159/80 12/15/16 11:00 73 141/81 12/15/16 11:00 70 12/15/16 11:00 98.1 73 18 141/81 99 12/15/16 10:45 88 119/76 12/15/16 10:30 88 113/74 12/15/16 10:20 82 151/92 12/15/16 10:00 82 12/15/16 08:00 72 12/15/16 07:47 98.1 76 18 144/84 98 I/O 12/15/16 12/15/16 12/15/16 12/16/16 12/16/16 12/16/16 07:00 15:00 23:00 07:00 15:00 23:00 Intake Total 513 ml 240 ml 200 ml Output Total 1400 ml 1100 ml Balance 513 ml -1160 ml -900 ml Intake Oral 0 ml 240 ml 200 ml IV Total 513 ml Output Urine Total 1400 ml 1100 ml # Voids 2 # Bowel Movements 0 Physical Exam GENERAL: Well-nourished, well-developed patient. SKIN: Warm and dry. HEAD: Normocephalic. EYES: No scleral icterus. No injection or drainage. NECK: Supple, trachea midline. No JVD or lymphadenopathy. CARDIOVASCULAR: Regular rate and rhythm without murmurs, gallops, or rubs. RESPIRATORY: Breath sounds equal bilaterally. No accessory muscle use. GASTROINTESTINAL: Abdomen soft, non-tender, nondistended. EXTREMITIES: No cyanosis, or edema. NEUROLOGICAL: Awake, alert, and oriented x 3. Non-focal. Laboratory Laboratory Tests Test 12/16/16 04:19 White Blood Count 10.5 TH/MM3 Red Blood Count 4.07 MIL/MM3 Hemoglobin 12.9 GM/DL Hematocrit 37.2 % Mean Corpuscular Volume 91.4 FL Mean Corpuscular Hemoglobin 31.6 PG Mean Corpuscular Hemoglobin 34.6 % Concent Red Cell Distribution Width 13.4 % Platelet Count 188 TH/MM3 Mean Platelet Volume 9.2 FL Neutrophils (%) (Auto) 71.5 % Lymphocytes (%) (Auto) 18.5 % Monocytes (%) (Auto) 8.8 % Eosinophils (%) (Auto) 1.0 % Basophils (%) (Auto) 0.2 % Neutrophils # (Auto) 7.5 TH/MM3 Lymphocytes # (Auto) 1.9 TH/MM3 Monocytes # (Auto) 0.9 TH/MM3 Eosinophils # (Auto) 0.1 TH/MM3 Basophils # (Auto) 0.0 TH/MM3 CBC Comment DIFF FINAL Differential Comment Sodium Level 141 MEQ/L Potassium Level 3.4 MEQ/L Chloride Level 106 MEQ/L Carbon Dioxide Level 26.1 MEQ/L Anion Gap 9 MEQ/L Blood Urea Nitrogen 11 MG/DL Creatinine 0.64 MG/DL Estimat Glomerular Filtration 90 ML/MIN Rate Random Glucose 99 MG/DL Calcium Level 8.5 MG/DL Total Creatine Kinase 117 U/L Triglycerides Level 145 MG/DL Cholesterol Level 218 MG/DL LDL Cholesterol 119 MG/DL HDL Cholesterol 69.6 MG/DL Cholesterol/HDL Ratio 3.13 RATIO Assessment and Plan Problem List: (1) NSTEMI (non-ST elevated myocardial infarction) Assessment and Plan: chest pain free ambulating without difficulty s/p PCI Cont DAPT ASA and Plavix Aggressive medical management for CAD Stable from CV standpoint to d/c home today (2) Hyperlipidemia (3) Acute coronary syndrome Jorge Maldonado MD Dec 16, 2016 07:45
--- NOTE | 2016-12-16 08:06 | HHI.DCPOC ---
Discharge Care Plan Goals to Promote Your Health * To prevent worsening of your condition and complications * To maintain your health at the optimal level Directions to Meet Your Goals Take your medications as prescribed Follow your dietary instruction Follow activity as directed Keep your appointments as scheduled Take your immunizations and boosters as scheduled If your symptoms worsen call your PCP, if no PCP go to Urgent Care Center or Emergency Room Smoking is Dangerous to Your Health. Avoid second hand smoke Call the 24-hour hour crisis hotline for domestic abuse at Iman Caballero MD Dec 16, 2016 08:05
--- NOTE | 2016-12-16 08:07 | HHI.DS ---
Discharge Summary Admission Date Dec 14, 2016 at 18:34 Discharge Date: Dec 16, 2016 Admitting Diagnosis NSTEMI, ACUTE CORONARY SYNDROME (1) NSTEMI (non-ST elevated myocardial infarction) ICD Code: I21.4 Procedures cardiac cath by Dr Jefferson cardiology Brief History - From Admission patient is a 76 y/o female with history of hypothyroidism, otherwise healthy, presented to ER with three-day history of chest pain. she describes it as midsternal chest tightness. she says that initially she thought it was bronchitis and she tried some mucinex but when the pain got worse and she had some numbness of the left hand she got worried and decided to come to ER. she says that she had exertional dyspnea along with the chest pain. she denies any nausea or vomiting. she says that she had this pain before but everytime she related the pain to allergy. but this time the pain was ' constant and more severe'. she was fairly comfortable at the time of my evaluation. CBC/BMP: 12/16/16 0419 12/16/16 0419 Significant Findings Laboratory Tests Test 12/14/16 12/15/16 12/15/16 12/15/16 17:03 01:15 03:24 05:00 Sodium Level 146 MEQ/L (136-145) Potassium Level 3.4 MEQ/L (3.5-5.1) Chloride Level 109 MEQ/L (98-107) Estimat Glomerular Filtration 66 ML/MIN (>89) Rate Random Glucose 107 MG/DL (74-106) Troponin I 0.27 NG/ML 0.32 NG/ML 0.28 NG/ML (0.02-0.05) (0.02-0.05) (0.02-0.05) Activated Partial 44.8 SEC Thromboplast Time (24.3-30.1) Monocytes (%) (Auto) 8.5 % (0.0-8.0) Alkaline Phosphatase 40 U/L (45-117) Total Protein 6.2 GM/DL (6.4-8.2) Triglycerides Level 187 MG/DL (42-150) Cholesterol Level 227 MG/DL (120-200) LDL Cholesterol 123 MG/DL (0-99) HDL Cholesterol 66.9 MG/DL (40.0-60.0) Test 12/16/16 04:19 Neutrophils (%) (Auto) 71.5 % (16.0-70.0) Monocytes (%) (Auto) 8.8 % (0.0-8.0) Potassium Level 3.4 MEQ/L (3.5-5.1) Cholesterol Level 218 MG/DL (120-200) LDL Cholesterol 119 MG/DL (0-99) HDL Cholesterol 69.6 MG/DL (40.0-60.0) Imaging Last Impressions Chest X-Ray 12/14/16 1645 Signed Impressions: Service Date/Time: December 17:02 - CONCLUSION: 1. No acute cardiopulmonary findings. Neno Yao MD PE at Discharge GENERAL: This is a well-nourished, well-developed patient, in no apparent distress. SKIN: No rashes, ecchymoses or lesions. Cool and dry. HEAD: Atraumatic. Normocephalic. No temporal or scalp tenderness. EYES: Pupils equal round and reactive. Extraocular motions intact. No scleral icterus. No injection or drainage. ENT: Nose without bleeding, purulent drainage or septal hematoma. Throat without erythema, tonsillar hypertrophy or exudate. Uvula midline. Airway patent. NECK: Trachea midline. No JVD or lymphadenopathy. Supple, nontender, no meningeal signs. CARDIOVASCULAR: Regular rate and rhythm without murmurs, gallops, or rubs. RESPIRATORY: Clear to auscultation. Breath sounds equal bilaterally. No wheezes , rales, or rhonchi. GASTROINTESTINAL: Abdomen soft, non-tender, nondistended. No hepato-splenomegaly , or palpable masses. No guarding. MUSCULOSKELETAL: Extremities without clubbing, cyanosis, or edema. No joint tenderness, effusion, or edema noted. No calf tenderness. Negative Homans sign bilaterally. NEUROLOGICAL: Awake and alert. Cranial nerves II through XII intact. Motor and sensory grossly within normal limits. Five out of 5 muscle strength in all muscle groups. Normal speech. Pt update on day of discharge Feels much better. No chest pain /pressure overnight. Ambulated to the bath, says no chest pain or sob. No nausea, palpitations. She did sweet overnight because was too hot in the room. No lightheadedness. Hospital Course 76 yo F with: NSTEMI: Trops 0.27-->0.32--> 0.28 started on aspirin, coreg, heparin and nitro drip. cardiology consulted, appreciate recommendations 2D ECHO reviewed normal EF 50-55%. Mild to moderate mitral valve regurgitation Lipid panel reviewed patient with HLD, start statin S/P cardiac cath by Dr Jefferson as above with severe 2 vessel coronary disease with 2 stents Severe 2 vessel coronary disease involving subtotally occluded obtuse marginal branch and severely stenotic mid left anterior descending coronary artery with percutaneous endovascular stenting with YVONNE to the first obtuse marginal branch. Also atherectomy and endovascular stenting with YVONNE to the mid left anterior descending coronary artery A1c is normal at 5.5 no diabetes At discharge continue ASA + Plavix, BB, statin. Hypokalemia: Replaced. Monitor and replace as need. Hypothyroidism: resume home meds DVT prophylaxis- on heparin drip. Improved, discharged home in fairly stable condition to follow up as OP with PCP and consultants. Pt Condition on Discharge: Stable Discharge Disposition: Discharge Home Discharge Time: <= 30 minutes Discharge Instructions DIET: Follow Instructions for: Heart Healthy Diet Activities you can perform: Regular-No Restrictions Follow up Referrals: Cardiology - 1 Week with Gilmar Jefferson MD PCP Follow-up - 3-5 Days New Medications: Nitroglycerin SL (Nitroglycerin SL) 0.4 Mg Subl 0.4 MG SL DIRECTED ONE TABLET UNDER THE TONGUE NEEDED FOR CHEST PAIN, MAY REPEAT EVERY FIVE MINUTES FOR A TOTAL OF 3 DOSES OR CALL 911 IF NO RELIEF PRN CHEST PAIN #100 Ref [address] (Aspirin EC) 81 Mg Tabdr 81 MG PO DAILY Blood Clot Prevention #30 TAB Atorvastatin (Atorvastatin) 40 Mg Tab 40 MG PO DAILY Cholesterol Management #30 TAB Carvedilol (Coreg) 3.125 Mg Tab 3.125 MG PO Q12HR Blood Pressure Management #60 TAB Clopidogrel (Plavix) 75 Mg Tab 75 MG PO DAILY Blood Clot Prevention #30 TAB Continued Medications: Levothyroxine (Levothyroxine) 25 Mcg Tab 25 MCG PO DAILY Thyroid #30 Ref 0 TAB Iman Caballero MD Dec 16, 2016 08:06
[2016-12-16] MEDS ORDERED: ISOS30TA3 PO (08:17)
[2016-12-16] MEDS: ATORVASTATIN 40 MG TAB PO SCH (08:29)
[2016-12-16] MEDS: CARVEDILOL 3.125 MG TAB PO SCH (08:30)
[2016-12-16] MEDS: ASPIRIN EC 81 MG TABEC PO SCH (08:30)
[2016-12-16] MEDS: SODIUM CHLORIDE 0.9% FLUSH 10 ML FLUSH IV FLUSH SCH (08:31)
[2016-12-16] MEDS ORDERED: POTASSIUM CHLORIDE 10 MEQ CONTROLLED RELEASE TAB PO ONE (09:00)
[2016-12-16] MEDS ORDERED: CLOPIDOGREL 75 MG TAB PO SCH (09:00)
--- NOTE | 2016-12-16 15:38 | EKG ---
Date Performed: 12/15/2016 Time Performed: 10:27:18 PTAGE: 76 years EKG: Sinus rhythm . Poor R wave progression - probable normal variant Inferior ST-T changes are nonspecific Compared to previous tracing, there is minimal ST elevation in leads V2 and V3 Borderline ECG NO PREVIOUS TRACING DOCTOR: Edilma Calixto Interpretating Date/Time 12/16/2016 15:37:03
--- NOTE | 2016-12-16 15:39 | EKG ---
Date Performed: 12/16/2016 Time Performed: 05:06:48 PTAGE: 76 years EKG: Sinus rhythm Extensive ST-T changes may be due to myocardial ischemia Compared to previous tracing, further nonsp ecific ST-T wave changes are present inferior and anterolaterally, this may represent ischemia Clinic al correlation is recommended Abnormal ECG PREVIOUS TRACING : 12/15/2016 10.27 DOCTOR: Edilma Calixto Interpretating Date/Time 12/16/2016 15:37:43
== END 2016-12-16 10:28 | disposition home or self-care (01) | DRG 247 ==
LOC: PHED 16:29 → PHEDA 18:34 → HCIN 22:30
PROVIDERS: ADMIT Hospitalist; ATTEND Hospitalist
PROC: X2C0361 Extirpation of Matter from Coronary Artery, One Artery using Orbital Atherectomy Technology, Percutaneous Approach, New Technology Group 1 (ICD-10-PCS; 2016-12-15)
PROC: 4A023N7 Measurement of Cardiac Sampling and Pressure, Left Heart, Percutaneous Approach (ICD-10-PCS; 2016-12-15)
PROC: B2111ZZ Fluoroscopy of Multiple Coronary Arteries using Low Osmolar Contrast (ICD-10-PCS; 2016-12-15)
PROC: B2151ZZ Fluoroscopy of Left Heart using Low Osmolar Contrast (ICD-10-PCS; 2016-12-15)
PROC: 027135Z Dilation of Coronary Artery, Two Arteries with Two Drug-eluting Intraluminal Devices, Percutaneous Approach (ICD-10-PCS; principal; 2016-12-15 10:30)
DX: I21.4 Non-ST elevation (NSTEMI) myocardial infarction (principal); I25.10 Atherosclerotic heart disease of native coronary artery without angina pectoris; I34.0 Nonrheumatic mitral (valve) insufficiency; E03.9 Hypothyroidism, unspecified; E87.6 Hypokalemia; E78.5 Hyperlipidemia, unspecified
CPT/HCPCS: 71020; 80048; 80053; 80061; 82550; 83036; 83735; 83880; 84443; 84484; 85025; 85610; 85730; 92929; 92933; 93005; 93306; 93458; 96365; 96375; C1725; C1769; C1874; C1887; C1893; J0583; J1644; J2250; J2270; J2405; J3010; Q9967